=== PATIENT | female | born 1985 | race Caucasian/White ===

== ENCOUNTER 2017-02-04 19:34 | Emergency (ER) | payer MEDICAID ==
[~2017-02-04] VITALS: Ht 154.9 cm; Wt 52.2 kg
[2017-02-04 20:00] VITALS: BP 95/68
[2017-02-04 20:33] LABS: Urine Bilirubin Negative (Negative); Urine Blood Negative /uL (Negative); Urine Color Yellow (Yellow); Urine Glucose Normal (Normal); Urine Ketone Negative (Negative); Urine Nitrite Negative (Negative); Urine RBC 1 /hpf (0 - 4); Urine Squamous Epithelial Cell FEW /hpf (<5); Urine Urobilinogen Normal (Negative); Urine pH 6.5 (5.0-8.0)
[2017-02-04 20:43] LABS: Basophils # (auto) 0 uL; Basophils % (auto) 0.3 % (0.0-2.0); Eosinophils # (auto) 0.1 uL; Eosinophils % (auto) 1.1 % (0.0-7.0); Hematocrit 40.2 % (36.0-46.0); Hemoglobin 13.8 g/dL (12.2-16.2); Lymphocytes # (auto) 3.2 uL; Mean Corpuscular Hemoglobin 29.5 pg (28.0-32.0); Mean Corpuscular Hgb Conc. 34.4 g/dL (32.0-36.0); Mean Corpuscular Volume 85.9 fL (80.0-100.0); Monocytes # (auto) 0.6 uL; Monocytes % (auto) 5.7 % (0.0-12.0); Neutrophils # (auto) 7.4 uL; Neutrophils % (auto) 64.9 % (37.0-80.0); Platelet Count (auto) 335 10^3/uL (140-450); Red Cell Distribution Width 13.5 % (11.6-16.0); White Blood Cell 11.3 10^3/uL (4.4-10.8)
[2017-02-04 21:00] LABS: Albumin 3.8 g/dL (3.4-5.0); BUN/Creatinine Ratio 15.1; Calcium 9.2 mg/dL (8.5-10.1); Potassium 3.7 mmol/L (3.5-5.1)
[2017-02-04 21:03] LABS: Bilirubin, Total 0.3 mg/dL (0.2-1.0); Total Protein 8.4 g/dL (6.4-8.2)
== END 2017-02-05 06:40 | disposition left against medical advice (07) ==
LOC: ER 19:37
DX: R10.9 Unspecified abdominal pain (principal); Z53.21 Procedure and treatment not carried out due to patient leaving prior to being seen by health care provider
CPT/HCPCS: 36415; 80053; 81001; 81025; 85025

== ENCOUNTER 2017-03-27 18:47 | Emergency (ER) | payer MEDICAID ==
[~2017-03-27] VITALS: Ht 154.9 cm; Wt 56.7 kg
[2017-03-27] MEDS ORDERED: ACETAMINOPHEN 325 MG TAB PO ONE (21:00)
[2017-03-27] MEDS ORDERED: HYDROcodone-ACET 5/325MG TAB PO ONE (21:00)
[2017-03-27 22:43] VITALS: BP 124/77
== END 2017-03-27 22:44 | disposition home or self-care (01) ==
LOC: ER 18:53
DX: S16.1XXA Strain of muscle, fascia and tendon at neck level, initial encounter (principal); S39.012A Strain of muscle, fascia and tendon of lower back, initial encounter; M79.1 Myalgia; G89.29 Other chronic pain; M54.9 Dorsalgia, unspecified; V49.59XA Passenger injured in collision with other motor vehicles in traffic accident, initial encounter; Y93.89 Activity, other specified; Y99.8 Other external cause status; Y92.410 Unspecified street and highway as the place of occurrence of the external cause
CPT/HCPCS: 70450; 72040; 72100; 72125; 72131

== ENCOUNTER 2017-04-01 21:09 | Emergency (ER) | payer MEDICAID ==
[~2017-04-01] VITALS: Ht 154.9 cm; Wt 56.7 kg
[2017-04-02] MEDS ORDERED: KETOROLAC TROMETH 60MG/2ML VIAL IM ONE (00:30)
[2017-04-02] MEDS ORDERED: CYCLOBENZAPRINE HCL 10 MG TAB PO ONE (00:30)
[2017-04-02 00:40] VITALS: BP 101/65
== END 2017-04-02 00:55 | disposition home or self-care (01) ==
LOC: ER 21:14
DX: S16.1XXA Strain of muscle, fascia and tendon at neck level, initial encounter (principal); V49.69XA Unspecified car occupant injured in collision with other motor vehicles in traffic accident, initial encounter; Y93.89 Activity, other specified; Y99.8 Other external cause status; Y92.410 Unspecified street and highway as the place of occurrence of the external cause
CPT/HCPCS: 96372

== ENCOUNTER 2017-06-18 21:16 | Emergency (ER) | payer MEDICAID ==
[~2017-06-18] VITALS: Ht 154.9 cm; Wt 54.4 kg
[2017-06-18 21:30] VITALS: BP 137/68
== END 2017-06-19 02:13 | disposition home or self-care (01) ==
LOC: EDBD 21:16 → ER 21:23
DX: S13.4XXA Sprain of ligaments of cervical spine, initial encounter (principal); M25.551 Pain in right hip; F12.90 Cannabis use, unspecified, uncomplicated; V43.52XA Car driver injured in collision with other type car in traffic accident, initial encounter; Y93.89 Activity, other specified; Y99.8 Other external cause status; Y92.488 Other paved roadways as the place of occurrence of the external cause
CPT/HCPCS: 72125